=== PATIENT | male | born 1955 | race Caucasian/White ===

== ENCOUNTER 2019-08-17 21:56 | Inpatient (IN) | payer MEDICAID ==
[~2019-08-17] VITALS: Ht 188 cm; Wt 85.1 kg
[~2019-08-17 21:56] MED LIST: FOLI-43 PO; INSU100I26 SQ; INSU100V35 SQ; LACT10SO6 PO; LISI10TA5 PO; MAGN64TA7 PO; OMEP-268 PO; RIFA550T5 PO
[2019-08-17 22:02] VITALS: BP_SYST 176
--- NOTE | 2019-08-17 22:12 | NUR ---
Placed in room 1 . Placed on computer tester, blood pressure machine and pulse oximeter. To gown for exam. Side rails up. Report given to MICKI MACIAS.
[2019-08-17] MEDS ORDERED: THIA50TA10 PO (22:22)
--- NOTE | 2019-08-17 22:23 | NUR ---
Medication reconciliation completed with information provided by [facility]. Any prior medication reconciliation on file was reviewed and corrected.
--- NOTE | 2019-08-17 22:25 | NUR ---
Pt BIB BLS from [facility] for elevated ammonia levels. Pt is alert and ambulatory at this time. Denies any chest pain, shortness of breath, N/V/D or any other symptoms at this time. Will continue to monitor.
--- NOTE | 2019-08-17 22:28 | NUR ---
# 20 gauge angiocath placed to LT AC. Use of asceptic technique. Opsite placed over site. Blood return noted. Blood for lab drawn from site. Flushed with 10 cc of normal saline. No evidence of infiltration noted. Patient tolerated well.
--- NOTE | 2019-08-17 22:40 | NUR ---
Patient transported to radiology via wheelchair, accompanied by rad staff.
[2019-08-17 22:41] LABS: BASOPHILS % (AUTO) 0.9 % (0.0-2.0); EOSINOPHILS # (AUTO) 0.1 K/uL (0.0-0.4); EOSINOPHILS % (AUTO) 3.2 % (0.0-4.0); HEMATOCRIT 32.6 % (36-54); HEMOGLOBIN 11.5 g/dL (14.0-18.0); MEAN CORPUSCULAR HEMOGLOBIN 33 pg (27-31); MEAN CORPUSCULAR HGB CONC 35 % (32-36); MEAN CORPUSCULAR VOLUME 94 fL (79.0-98.0); MONOCYTES # (AUTO) 0.4 K/uL (0.0-1.0); MONOCYTES % (AUTO) 10.6 % (1.7-9.3); NEUTROPHILS # (AUTO) 2.1 K/uL (1.8-7.7); NEUTROPHILS % (AUTO) 57.3 % (40.0-70.0); PLATELET COUNT (AUTO) 91 K/uL (130-430); RED BLOOD CELL COUNT(AUTO) 3.48 MIL/uL (4.2-6.2); RED CELL DISTRIBUTION WIDTH 13.9 % (9.0-15.0); WHITE BLOOD COUNT (AUTO) 3.7 K/uL (4.8-10.8)
[2019-08-17 22:47] LABS: BILIRUBIN,URINE NEGATIVE (NEGATIVE); BLOOD, URINE 1+ (NEGATIVE); CLARITY/URINE CLEAR (CLEAR); COLOR,URINE YELLOW (YELLOW); GLUCOSE,URINE 3+ (NEGATIVE); KETONES,URINE NEGATIVE (NEGATIVE); LEUKOCYTE ESTERASE ,URINE NEGATIVE (NEGATIVE); NITRITE, URINE NEGATIVE (NEGATIVE); PROTEIN URINE NEGATIVE (NEGATIVE); UROBILINOGEN,URINE 0.2 (0.2-1.0)
[2019-08-17 22:49] LABS: CALCIUM 9.4 mg/dL (8.4-11.0); CREATININE 1.06 mg/dL (0.55-1.30); POTASSIUM 5.2 mmol/L (3.5-5.1)
--- NOTE | 2019-08-17 22:52 | NUR ---
ER Dr. De Los Santos at bedside examining patient.
[2019-08-17 22:55] LABS: ALBUMIN 2.9 g/dL (3.4-4.8); TOTAL BILIRUBIN 0.8 mg/dL (0.0-1.0)
[2019-08-17 22:59] LABS: BARBITURATE, URINE NEGATIVE (NEG <=200); BENZODIAZEPINE, URINE NEGATIVE (NEG <=150); CANNABINOID, URINE NEGATIVE (NEG <=50); COCAINE, URINE NEGATIVE (NEG <=150); METHAMPHETAMINES SCREEN,URINE NEGATIVE (NEG <=500); OPIATE, URINE NEGATIVE (NEG <=100); PHENCYCLIDINE SCREEN,URINE NEGATIVE (NEG <=25); UR TRICYCLIC ANTIDEPRESSANTS NEGATIVE (NEG <=300); URINE AMPHETAMINE NEGATIVE (NEG <=500); URINE METHADONE NEGATIVE (NEG <=200); URINE OXYCODONE SCREEN NEGATIVE (NEG <=100); URINE PROPOXYPHENE SCREEN NEGATIVE (NEG <=300)
[2019-08-17 23:01] LABS: BACTERIA,URINE FEW /HPF (None Seen); WBC,URINE 0-3 /HPF (0-3)
[2019-08-17 23:02] LABS: MUCUS,URINE None Seen /LPF (None Seen)
[2019-08-17] MEDS ORDERED: LACTULOSE 20 GM/30 ML UDC PO ONE (23:45)
--- NOTE | 2019-08-17 23:47 | NUR ---
Pt is resting in bed, no acute distress noted at this time. Will continue to monitor.
--- NOTE | 2019-08-18 | NUR ---
Patient will be admitted to care of Dr. Hudson. Admitted to telemetry unit. Will go to room 135. Belongings list completed. Summary report printed. Report will be given at bedside.
--- NOTE | 2019-08-18 00:47 | NUR ---
ADMISSION: The patient, TAO MITCHELL, 64 y/o, M admitted by BOGDAN AKHTAR MD,with the diagnosis of ALOC and Hepatic Encephalopathy , to room 135 , after admission will move pt to 123 B.
--- NOTE | 2019-08-18 00:50 | NUR ---
Transfer to [facility] via ACLS protocol. Licensed nurse present. IV present no signs or symptoms of infiltration.
[2019-08-18 00:59] VITALS: BP_SYST 151
--- NOTE | 2019-08-18 01:15 | NUR ---
NOTES: took over care from nurse Philippe.
--- NOTE | 2019-08-18 01:30 | NUR ---
ADMISSION PHYSICAL ASSESSMENT NOTES; pt. awake, alert, quie disoriented, oriented to room, use of call light and bed control, pt. is bilingual, speaks citizen [place] more than faroese. no c/o pain , on room air, no shortness of breath. moves all extremities well. IV lock on left forearm. pt. instructed to use call light when help needed, not to stand or get out of bed by himself, bed alarm, fall risk precautions. gave warm blanket, rpositioned self for comfort. placed on gambling monitor and shows sinus rhythm. wants to keep his pants and socks.
[2019-08-18] MEDS: D5/0.45 NS 1,000 ML IV SCH ×2 (02:21→20:57)
--- NOTE | 2019-08-18 02:27 | NUR ---
NOTES: pt. awakened and started on IVF of D5 1/2 NS @ 50 cc/hr. pt. wants to sleep. continue to observe.
--- NOTE | 2019-08-18 04:00 | NUR ---
NOTES: pt. sleeping when made rounds. bed alarm on.
--- NOTE | 2019-08-18 04:39 | NUR ---
CONSULT Called Dr. Christiansen's exchange for morning consult [phone] Spoke to Andra
--- NOTE | 2019-08-18 05:00 | NUR ---
NOTES: pt. sound asleep. continue to monitor. IVF infusing.
--- NOTE | 2019-08-18 06:00 | NUR ---
Notes; pt. got out of bed again without calling, voiding per urinal. no complaints noted but forgetful, reminded to use call light. back to bed and went back to sleep.
[2019-08-18 06:12] LABS: BASOPHILS % (AUTO) 1.1 % (0.0-2.0); EOSINOPHILS # (AUTO) 0.2 K/uL (0.0-0.4); HEMATOCRIT 30.1 % (36-54); HEMOGLOBIN 10.6 g/dL (14.0-18.0); LYMPHOCYTES # (AUTO) 1.2 K/uL (1.0-5.5); LYMPHOCYTES % (AUTO) 32.1 % (20.5-51.5); MEAN CORPUSCULAR HEMOGLOBIN 33 pg (27-31); MEAN CORPUSCULAR HGB CONC 35 % (32-36); MEAN CORPUSCULAR VOLUME 94 fL (79.0-98.0); MONOCYTES # (AUTO) 0.4 K/uL (0.0-1.0); MONOCYTES % (AUTO) 11.1 % (1.7-9.3); NEUTROPHILS # (AUTO) 1.9 K/uL (1.8-7.7); NEUTROPHILS % (AUTO) 51.7 % (40.0-70.0); PLATELET COUNT (AUTO) 94 K/uL (130-430); RED BLOOD CELL COUNT(AUTO) 3.21 MIL/uL (4.2-6.2); WHITE BLOOD COUNT (AUTO) 3.8 K/uL (4.8-10.8)
[2019-08-18 06:33] LABS: CALCIUM 8.8 mg/dL (8.4-11.0); CREATININE 0.91 mg/dL (0.55-1.30); POTASSIUM 4.5 mmol/L (3.5-5.1)
--- NOTE | 2019-08-18 06:34 | NUR ---
CLOSING NOTES; pt. sleeping, no acute distress. IVF patent and intact. needs attended, pending labs drawn this am. safety measures in place, bed alarm on. call light at bedside. will endorse to day shift. for further care and assistance.
[2019-08-18 06:38] LABS: ALBUMIN 2.4 g/dL (3.4-4.8); TOTAL BILIRUBIN 0.9 mg/dL (0.0-1.0)
--- NOTE | 2019-08-18 06:56 | NUR ---
Nutrition Update Flip Scale 18 noted. Pt admitted for Hepatic Encephalopathy, ALOC Diet: Regular diet BMI: 24.1 kg/m2 RD to follow per nutrition care standards.
[2019-08-18 07:14] LABS: THYROID STIMULATING HORMONE 28.38 uIu/mL (0.36-3.74)
[2019-08-18 08:00] VITALS: BP_SYST 135
--- NOTE | 2019-08-18 08:00 | NUR ---
AM ASSESSMENT. PT ALERT, AND ABLE TO EXPRESS BASIC NEEDS, HE ASKED TO GET HIM A DIAPER, STATED "IN THE OTHER PLACE, THE NURSES WOULD TELL ME THAT I CAN USE A DIAPER, (HE PULLED DOWN HIS UNDERWEAR TO SHOW WHAT HE'S WEARING). EDUCATION ON USE OF WIPES AND PERSONAL HYGIENE GIVEN. PT WAS LED TO THE BATHROOM, HE WALKED HIMSELF, NURSE FOLLOWING HIM. PROVIDED WET SOAPY TOWELS PLUS DRY TOWEL FOR HYGIENE, AND CLEAN GOWN, THEN ASSISTED PT INTO HIS BED.
[2019-08-18] MEDS: LACTULOSE 20 GM/30 ML UDC PO SCH ×3 (08:45→20:57)
[2019-08-18] MEDS ORDERED: RIFAXIMIN 550 MG TABLET PO ONE (10:00)
--- NOTE | 2019-08-18 10:35 | NUR ---
FAMILY. PT'S SISTER AT BEDSIDE VISITING, UPDATE GIVEN.
[2019-08-18 12:20] VITALS: BP_SYST 146
--- NOTE | 2019-08-18 13:50 | NUR ---
CONSULTATION PAGED/CALLED Reason for Consultation: ALOC Person Who was Notified: SPOKE WITH ZAC FROM EXCHANGE. Consulting Physician: Manager Of Tax Specialty: PSYCHIATRY Ordering Physician: FACE SHEET WAS SENT FAX#[phone]
--- NOTE | 2019-08-18 13:59 | NUR ---
CONSULTATION PAGED/CALLED Reason for Consultation: METABOLIC ENCEPHALOPATHY Person Who was Notified: SPOKE WITH AMAYA FROM EXCHANGE Consulting Physician: Ager Operator Specialty: ID Ordering Physician:
--- NOTE | 2019-08-18 15:30 | NUR ---
TO ANOTHER ROOM. TRANSFERRED PATIENT INTO ROOM 119-A.
[2019-08-18 16:50] VITALS: BP_SYST 140
--- NOTE | 2019-08-18 18:40 | NUR ---
NURSING. PT COMFORTABLY SITTING IN BED, NEEDS ATTENDED, DENIES BODY DISCOMFORTS.
--- NOTE | 2019-08-18 19:10 | NUR ---
OPENING NOTES Bedside report received from dayshift nurse. Patient received lying in bed, awake, watching TV. No s/s of acute distress noted. Breathing is even and unlabored. Patient denies any pain at this time. IVF infusing well, IV site patent, no signs of infiltration or infection noted. HOB raised. Call light with patient, instructed to call for any assistance, patient verbalized understanding, patient demonstrated back proper use. Bed alarm is off per patient's refusal. Bed is locked and at lowest position. Will continue to monitor.
[2019-08-18 20:00] VITALS: BP_SYST 154
[2019-08-18] MEDS: RIFAXIMIN 550 MG TABLET PO SCH (20:56)
--- NOTE | 2019-08-18 21:00 | NUR ---
ROUNDS Patient is in the bathroom at this time. Patient instructed to pull cord if he needs any help, patient verbalized understanding. Will continue to monitor.
--- NOTE | 2019-08-18 23:00 | NUR ---
ROUNDS Patient in bed sleeping at this time. No s/s of acute distress noted. Breathing even and unlabored. IVF infusing well. Call light with patient. Will continue to monitor.
[2019-08-19 00:39] VITALS: BP_SYST 152
--- NOTE | 2019-08-19 01:00 | NUR ---
INCONTINENT CARE Patient woke up, had a BM. Patient cleaned by RN at this time. Changed sheets, linen, and gown. Patient tolerated well. All needs met at this time. Call light with patient. Will continue to monitor.
--- NOTE | 2019-08-19 03:00 | NUR ---
ROUNDS Patient in bed, sleeping. No s/s of acute distress noted. Breathing even and unlabored. IVF infusing well. Call light with patient. Will continue to monitor.
--- NOTE | 2019-08-19 05:00 | NUR ---
ROUNDS Patient in bed sleeping at this time. No signs of discomfort noted. Chest rise and fall even bilaterally. HOB raised. IVF infusing well. Call light with patient. Will continue to monitor.
--- NOTE | 2019-08-19 06:22 | NUR ---
CLOSING NOTES Patient in bed sleeping comfortably. No s/s of acute distress noted. Breathing even and unlabored. IVF infusing well, IV site patent, no signs of infiltration or infection noted. HOB raised. All needs met throughout shift. Fall and safety precautions maintained throughout shift. Will continue to monitor until patient care is endorsed to oncoming dayshift nurse.
[2019-08-19 06:39] LABS: BASOPHILS % (AUTO) 0.6 % (0.0-2.0); EOSINOPHILS # (AUTO) 0.1 K/uL (0.0-0.4); EOSINOPHILS % (AUTO) 1.8 % (0.0-4.0); HEMOGLOBIN 10.8 g/dL (14.0-18.0); LYMPHOCYTES # (AUTO) 0.9 K/uL (1.0-5.5); LYMPHOCYTES % (AUTO) 19.3 % (20.5-51.5); MEAN CORPUSCULAR HEMOGLOBIN 33 pg (27-31); MEAN CORPUSCULAR HGB CONC 35 % (32-36); MEAN CORPUSCULAR VOLUME 95 fL (79.0-98.0); MONOCYTES # (AUTO) 0.7 K/uL (0.0-1.0); MONOCYTES % (AUTO) 14.1 % (1.7-9.3); NEUTROPHILS % (AUTO) 64.2 % (40.0-70.0); PLATELET COUNT (AUTO) 102 K/uL (130-430); RED BLOOD CELL COUNT(AUTO) 3.27 MIL/uL (4.2-6.2); RED CELL DISTRIBUTION WIDTH 13.9 % (9.0-15.0); WHITE BLOOD COUNT (AUTO) 4.6 K/uL (4.8-10.8)
[2019-08-19 07:30] LABS: ALBUMIN 2.7 g/dL (3.4-4.8); CREATININE 1.09 mg/dL (0.55-1.30)
[2019-08-19 07:46] LABS: CALCIUM 8.8 mg/dL (8.4-11.0); TOTAL BILIRUBIN 0.8 mg/dL (0.0-1.0)
[2019-08-19 08:00] VITALS: BP_SYST 139
[2019-08-19] MEDS: RIFAXIMIN 550 MG TABLET PO SCH ×2 (09:26→20:18)
[2019-08-19] MEDS: LACTULOSE 20 GM/30 ML UDC PO SCH ×3 (09:26→20:18)
[2019-08-19] MEDS: D5/0.45 NS 1,000 ML IV SCH (17:28)
--- NOTE | 2019-08-19 19:10 | NUR ---
OPENING NOTES Bedside report received from dayshift nurse. Patient received lying in bed, awake, no s/s of acute distress noted. Breathing even and unlabored. IVF infusing well. IV site is patent, no signs of infiltration or infection noted. HOB raised. Patient denies any pain or discomfort. Call light with patient. Bed is locked and at lowest position. Will continue to monitor.
[2019-08-19 20:00] VITALS: BP_SYST 155
--- NOTE | 2019-08-19 21:00 | NUR ---
ROUNDS Patient in bed, eyes closed, appears to be asleep. No signs of discomfort noted. Chest rise and fall even bilaterally. IVF infusing well. Call light with patient. Will continue to monitor.
--- NOTE | 2019-08-19 23:00 | NUR ---
INCONTINENT CARE Patient had a bowel movement. Incontinent care done by RN. Patient tolerated well. All needs met at this time. Call light with patient. IVF infusing well. Will continue to monitor.
[2019-08-20 00:12] VITALS: BP_SYST 145
--- NOTE | 2019-08-20 01:00 | NUR ---
ROUNDS Patient sleeping comfortably at this time. No signs of discomfort noted. Chest rise and fall even bilaterally. IVF infusing well. Call light with patient. Will continue to monitor.
--- NOTE | 2019-08-20 03:00 | NUR ---
ROUNDS Patient in bed sleeping. No s/s of acute distress noted. Breathing even and unlabored. IVF infusing well. Call light with patient. Will continue to monitor.
--- NOTE | 2019-08-20 05:00 | NUR ---
INCONTINENT CARE Patient in bed, received incontinent care from MECHANICAL DESIGN TECHNICIAN. Patient tolerated well. All needs met. Call light with patient. Will continue to monitor.
--- NOTE | 2019-08-20 06:23 | NUR ---
CLOSING NOTES Patient in bed asleep at this time. No s/s of acute distress noted. Breathing even and unlabored. IVF infusing well. IV site patent, no signs of infiltration or infection noted. HOB raised. All needs met throughout shift. Fall and safety precautions maintained throughout shift. Will continue to monitor until patient care is endorsed to oncoming dayshift nurse.
[2019-08-20 06:30] LABS: BASOPHILS % (AUTO) 0.8 % (0.0-2.0); EOSINOPHILS # (AUTO) 0.2 K/uL (0.0-0.4); EOSINOPHILS % (AUTO) 4.1 % (0.0-4.0); HEMATOCRIT 29.2 % (36-54); HEMOGLOBIN 10.3 g/dL (14.0-18.0); LYMPHOCYTES # (AUTO) 1.4 K/uL (1.0-5.5); LYMPHOCYTES % (AUTO) 29.6 % (20.5-51.5); MEAN CORPUSCULAR HEMOGLOBIN 33 pg (27-31); MEAN CORPUSCULAR HGB CONC 35 % (32-36); MONOCYTES # (AUTO) 0.6 K/uL (0.0-1.0); MONOCYTES % (AUTO) 12.2 % (1.7-9.3); NEUTROPHILS # (AUTO) 2.5 K/uL (1.8-7.7); NEUTROPHILS % (AUTO) 53.3 % (40.0-70.0); PLATELET COUNT (AUTO) 99 K/uL (130-430); RED BLOOD CELL COUNT(AUTO) 3.14 MIL/uL (4.2-6.2); RED CELL DISTRIBUTION WIDTH 13.7 % (9.0-15.0); WHITE BLOOD COUNT (AUTO) 4.7 K/uL (4.8-10.8)
[2019-08-20 06:47] LABS: ALBUMIN 2.4 g/dL (3.4-4.8); CALCIUM 8.6 mg/dL (8.4-11.0); CREATININE 1.01 mg/dL (0.55-1.30); POTASSIUM 3.9 mmol/L (3.5-5.1); TOTAL BILIRUBIN 0.8 mg/dL (0.0-1.0)
--- NOTE | 2019-08-20 07:35 | NUR ---
OPENING NOTE Patient resting in the bed. No acute distress. Denied of pain. Skin warm and dry to touch. IV intact to LFA, no redness, no swelling, no drainage. On D5 1/2NS at 50ml/hr, infusing well. Discussed the safety issue, use call light when needs help, and plan of care, verbally understanding. Safety measure maintained. Call light within reached. Bed locked in low position, side rails up. Refused bed alarm, risk and benefit explained, verbally understanding. Will continue to monitor.
[2019-08-20 07:48] LABS: MEAN CORPUSCULAR VOLUME 93 fL (79.0-98.0)
[2019-08-20 07:55] VITALS: BP_SYST 132
--- NOTE | 2019-08-20 09:00 | NUR ---
BREAKFAST Patient sitting at the edge of the bed and eating breakfast. No acute distress. Safety measure maintained. Call light within reached. Continue to monitor.
[2019-08-20] MEDS: LACTULOSE 20 GM/30 ML UDC PO SCH ×3 (09:52→21:37)
[2019-08-20] MEDS: RIFAXIMIN 550 MG TABLET PO SCH ×2 (09:52→21:37)
--- NOTE | 2019-08-20 10:07 | NUR ---
SEEN AND EXAMINED BY DR. DAVID [facility].
[2019-08-20 12:00] VITALS: BP_SYST 143
--- NOTE | 2019-08-20 12:10 | NUR ---
LUNCH Patient eating lunch in upright position. No acute distress. IV intact, IVF infusing well. Safety measure maintained. Call light within reached. Bed locked in low position, side rails up. Continue to monitor.
--- NOTE | 2019-08-20 13:32 | NUR ---
RESTING Patient resting in the bed with eyes closed. No acute distress. IV intact, IVF infusing well. Safety measure maintained. Call light within reached. Bed locked in low position, side rails up. Continue to monitor.
[2019-08-20] MEDS: D5/0.45 NS 1,000 ML IV SCH (14:51)
--- NOTE | 2019-08-20 15:42 | NUR ---
ROUND Patient resting in the bed. No acute distress. IV intact, IVF infusing well. Safety measure maintained. Call light within reached. Bed locked in low position, side rails up. Continue to monitor.
[2019-08-20 16:16] VITALS: BP_SYST 153
--- NOTE | 2019-08-20 18:45 | NUR ---
CLOSING NOTE Patient resting in the bed. No acute distress. Skin warm and dry to touch. IV intact to LFA, no redness, no swelling, no drainage. On D5 1/2NS at 50ml/hr, infusing well. All needs met. Safety measure maintained. Call light within reached. Bed locked in low position, side rails up. Refused bed alarm, risk and benefit explained, verbally understanding. Will endorse to night nurse.
--- NOTE | 2019-08-20 19:34 | NUR ---
patient resting in bed ,with call light at bedside. Dr Hudson informed about the patient blood sugar and with orders and carried out
[2019-08-20 20:00] VITALS: BP_SYST 155
--- NOTE | 2019-08-20 20:05 | NUR ---
CALLED : CALLED AND NOTIFIED THAT ORDERED FEW LABS FOR TONIGHT , ORDERED TO CHANGE ALL LABS FOR TOMORROW MORNING . Addendum: 08/20/19 at 2009 by Denae Cisneros RN DR HERMILO ARIAS
--- NOTE | 2019-08-20 20:20 | NUR ---
Dr Hudson called for the patient is on ivf and with orders and carried out
--- NOTE | 2019-08-20 20:28 | NUR ---
iv fluids discontinued as per Dr Hudson orders. Addendum: 08/20/19 at 2028 by [employer] reference assistant patient is with orders to remove the monitor and done
[2019-08-21] VITALS: BP_SYST 136
[2019-08-21] MEDS: INSULIN REGULAR, HUMAN 100 UNITS/ML, 10 ML VIAL (humuLIN R) SUBCUT PRN ×4 (00:21→17:38)
[2019-08-21 04:00] VITALS: BP_SYST 127
--- NOTE | 2019-08-21 06:23 | NUR ---
TRANSFER OF CARE/END NOTE RECEIVED REPORT FROM GILBERTO CHRISTINA AT 0600. GILBERTO RODRIGUEZ LEFT EARLY. PATIENT IS ASLEEP BUT AROUSABLE. NO COMPLAINTS AT THIS TIME. LATEST BLOOD SUGAR WAS 164, COVERAGE GIVEN. HAD INCONTINENT EPISODE. CARE AND MONITORING PROVIDED SINCE TRANSFER OF CARE. CALL LIGHT WITHIN REACH. BED ALARM OFF AT THIS TIME BUT ADVISED TO CALL. PATIENT IS AMBULATORY. KEPT CLEAN, DRY AND COMFORTABLE.
[2019-08-21 07:09] LABS: CALCIUM 8.8 mg/dL (8.4-11.0); CREATININE 1.04 mg/dL (0.55-1.30); POTASSIUM 3.9 mmol/L (3.5-5.1)
[2019-08-21 07:10] LABS: EOSINOPHILS # (AUTO) 0.2 K/uL (0.0-0.4); EOSINOPHILS % (AUTO) 6.3 % (0.0-4.0); HEMATOCRIT 29.5 % (36-54); HEMOGLOBIN 10.5 g/dL (14.0-18.0); LYMPHOCYTES # (AUTO) 1.1 K/uL (1.0-5.5); LYMPHOCYTES % (AUTO) 29.3 % (20.5-51.5); MEAN CORPUSCULAR HEMOGLOBIN 33 pg (27-31); MEAN CORPUSCULAR HGB CONC 35 % (32-36); MEAN CORPUSCULAR VOLUME 93 fL (79.0-98.0); MONOCYTES # (AUTO) 0.5 K/uL (0.0-1.0); MONOCYTES % (AUTO) 12.3 % (1.7-9.3); NEUTROPHILS % (AUTO) 51.1 % (40.0-70.0); PLATELET COUNT (AUTO) 106 K/uL (130-430); RED BLOOD CELL COUNT(AUTO) 3.16 MIL/uL (4.2-6.2); RED CELL DISTRIBUTION WIDTH 13.8 % (9.0-15.0); WHITE BLOOD COUNT (AUTO) 3.9 K/uL (4.8-10.8)
--- NOTE | 2019-08-21 07:30 | NUR ---
OPENING NOTES: RECEIVED PATIENT FROM REFRIGERATOR TESTER NURSE. PATIENT IS AWAKE AND ALERT x3. PATIENT DENIES ANY PAIN. NO SIGNS OF DISTRESS OR SHORTNESS OF BREATH NOTED. IV SITE IS PATENT WITH NO SIGNS OF INFILTRATION. PATIENT IN STABLE CONDITION. SAFETY AND FALL PRECAUTIONS ARE IN PLACE. BED LOCKED IN LOWEST POSITION WITH CALL LIGHT IN REACH. WILL CONTINUE TO MONITOR PATIENT FOR ANY CHANGES.
[2019-08-21 08:00] VITALS: BP_SYST 139
[2019-08-21] MEDS: LACTULOSE 20 GM/30 ML UDC PO SCH ×2 (09:20→15:00)
[2019-08-21] MEDS: RIFAXIMIN 550 MG TABLET PO SCH (09:20)
--- NOTE | 2019-08-21 10:30 | NUR ---
RN ROUNDS: PATIENT IS AWAKE AND ALERT x3. PATIENT DENIES ANY PAIN. NO SIGNS OF DISTRESS OR SHORTNESS OF BREATH NOTED. PATIENT IN STABLE CONDITION. WILL CONTINUE TO MONITOR PATIENT FOR ANY CHANGES.
--- NOTE | 2019-08-21 12:28 | NUR ---
RN ROUNDS: PATIENT IS AWAKE AND ALERT x3 IN BED. PATIENT IS CURRENTLY EATING LUNCH. PATIENT DENIES ANY PAIN AT THE MOMENT. NO SIGNS OF DISTRESS OR SHORTNESS OF BREATH NOTED. PATIENT IN STABLE CONDITION. WILL CONTINUE TO MONITOR PATIENT FOR ANY CHANGES.
[2019-08-21 12:40] VITALS: BP_SYST 140
--- NOTE | 2019-08-21 12:47 | NUR ---
Discharge Planning: DCP faxed pt referral to [facility] p [phone]) DCP to follow up. Addendum: 08/21/19 at 1515 by Genet Jameson DP Patient accepted to RM 8B at [facility] p [phone]) Addendum: 08/21/19 at 1538 by Genet Jameson DP Patient accepted to [facility] p [phone]) 8B, transportation arrange by [employer] ([phone]) 6:30pm Reservation #[id number]. Patient packet taken to nurse station.
--- NOTE | 2019-08-21 14:50 | NUR ---
ROUNDS PT IN BED, WATCHING TV, NO S/S OF DISTRESS OR SOB NOTED, PT HAS NO C/O PAIN AT THIS TIME, PT IN STABLE CONDITION, WILL CONTINUE TO MONITOR PT FOR ANY CHANGES.
--- NOTE | 2019-08-21 16:25 | NUR ---
ROUNDS PT IN BED, SLEEPING, NO S/S OF DISTRESS OR SOB NOTED, PT HAS NO FACIAL GRIMACING NOTED FOR PAIN, PT IN STABLE CONDITION, WILL CONTINUE TO MONITOR PT FOR ANY CHANGES.
[2019-08-21 16:45] VITALS: BP_SYST 141
[2019-08-21 18:10] VITALS: BP_SYST 141
--- NOTE | 2019-08-21 18:43 | NUR ---
PT TRANSFERRED Report given to may at [facility]. Transfer packet with Transfer Orders and Medication Reconciliation form given to EMT with report. Exitcare provided. [facility] ID band removed, replaced with ID band with pt's name and . IV catheter removed, intact and dressing applied, no active bleeding. All belongings sent with patient. Patient left floor via gurney escorted by EMT in no distress.
== END 2019-08-21 18:43 | DRG 279 ==
LOC: SED 21:56 → STU 23:40 → SMU 08-20 23:13
PROVIDERS: ADMIT Internal Medicine; ATTEND Internal Medicine
DX: K72.90 Hepatic failure, unspecified without coma (principal); G92 Toxic encephalopathy; E43 Unspecified severe protein-calorie malnutrition; D70.9 Neutropenia, unspecified; D69.6 Thrombocytopenia, unspecified; B19.20 Unspecified viral hepatitis C without hepatic coma; D64.9 Anemia, unspecified; F29 Unspecified psychosis not due to a substance or known physiological condition; E03.9 Hypothyroidism, unspecified; E78.5 Hyperlipidemia, unspecified; I10 Essential (primary) hypertension; K70.30 Alcoholic cirrhosis of liver without ascites
CPT/HCPCS: 36415; 70450-TC; 71045; 76700-TC; 80048; 80053; 80307; 81000-TC; 82105; 82140-TC; 82390; 82962; 83735-TC; 83880; 84443-TC; 84484; 85025; 87081; 93005; 99285; G0378; J1815

== ENCOUNTER 2019-12-01 19:01 | Inpatient (IN) | payer MEDICAID ==
[~2019-12-01] VITALS: Ht 188 cm; Wt 83.2 kg
[~2019-12-01 19:01] MED LIST changes: -INSU100I26 SQ; -MAGN64TA7 PO; +THIA50TA10 PO
[2019-12-01 19:20] VITALS: BP_SYST 160
[2019-12-01 21:45] LABS: BASOPHILS % (AUTO) 0.8 % (0.0-2.0); EOSINOPHILS # (AUTO) 0.3 K/uL (0.0-0.4); EOSINOPHILS % (AUTO) 5.3 % (0.0-4.0); HEMATOCRIT 33.5 % (36-54); LYMPHOCYTES # (AUTO) 1.4 K/uL (1.0-5.5); LYMPHOCYTES % (AUTO) 27.7 % (20.5-51.5); MEAN CORPUSCULAR HEMOGLOBIN 33 pg (27-31); MEAN CORPUSCULAR HGB CONC 36 % (32-36); MEAN CORPUSCULAR VOLUME 92 fL (79.0-98.0); MONOCYTES # (AUTO) 0.4 K/uL (0.0-1.0); MONOCYTES % (AUTO) 8.4 % (1.7-9.3); NEUTROPHILS # (AUTO) 2.8 K/uL (1.8-7.7); NEUTROPHILS % (AUTO) 57.8 % (40.0-70.0); PLATELET COUNT (AUTO) 159 K/uL (130-430); RED BLOOD CELL COUNT(AUTO) 3.64 MIL/uL (4.2-6.2); RED CELL DISTRIBUTION WIDTH 14.3 % (9.0-15.0); WHITE BLOOD COUNT (AUTO) 4.9 K/uL (4.8-10.8)
[2019-12-01 22:03] LABS: PROTHROMBIN TIME 9.9 SECS (9.5-12.5)
[2019-12-01 22:04] LABS: CALCIUM 9.2 mg/dL (8.4-11.0); CREATININE 1.06 mg/dL (0.55-1.30); POTASSIUM 4.5 mmol/L (3.5-5.1)
[2019-12-01 22:06] LABS: ALBUMIN 3.1 g/dL (3.4-4.8); TOTAL BILIRUBIN 0.7 mg/dL (0.0-1.0)
[2019-12-01] MEDS ORDERED: CAT.1 PO (22:17)
[2019-12-01] MEDS ORDERED: FAMO20TA8 PO (22:17)
[2019-12-01] MEDS ORDERED: RIFA550T5 PO (22:17)
[2019-12-01] MEDS ORDERED: INSU100I26 SQ (22:17)
[2019-12-01] MEDS ORDERED: LACT10SO6 PO (22:17)
[2019-12-01] MEDS ORDERED: DOCU-144 PO (22:17)
[2019-12-01] MEDS ORDERED: LISI-600 PO (22:17)
[2019-12-01] MEDS ORDERED: LACTULOSE 20 GM/30 ML UDC PO ONE (22:45)
[2019-12-02 00:38] LABS: BILIRUBIN,URINE NEGATIVE (NEGATIVE); BLOOD, URINE NEGATIVE (NEGATIVE); CLARITY/URINE CLEAR (CLEAR); COLOR,URINE YELLOW (YELLOW); GLUCOSE,URINE TRACE (NEGATIVE); KETONES,URINE NEGATIVE (NEGATIVE); LEUKOCYTE ESTERASE ,URINE NEGATIVE (NEGATIVE); NITRITE, URINE NEGATIVE (NEGATIVE); PROTEIN URINE TRACE (NEGATIVE)
[2019-12-02 00:41] LABS: BACTERIA,URINE FEW /HPF (None Seen); RBC,URINE 0-3 /HPF (0-3); WBC,URINE 0-3 /HPF (0-3)
[2019-12-02 01:30] VITALS: BP_SYST 158
[2019-12-02] MEDS ORDERED: LORazepam 2 MG/ML VIAL IM PRN (02:30)
[2019-12-02 02:33] VITALS: BP_SYST 158
[2019-12-02] MEDS: D5NS 1,000 ML IV SCH ×2 (05:24→19:30)
[2019-12-02] MEDS: INSULIN REGULAR, HUMAN 100 UNITS/ML, 10 ML VIAL (humuLIN R) SUBCUT PRN ×3 (05:41→23:49)
[2019-12-02 06:59] LABS: EOSINOPHILS # (AUTO) 0.3 K/uL (0.0-0.4); EOSINOPHILS % (AUTO) 6.2 % (0.0-4.0); LYMPHOCYTES # (AUTO) 1.4 K/uL (1.0-5.5); LYMPHOCYTES % (AUTO) 32.5 % (20.5-51.5); MEAN CORPUSCULAR HEMOGLOBIN 32 pg (27-31); MEAN CORPUSCULAR HGB CONC 35 % (32-36); MEAN CORPUSCULAR VOLUME 91 fL (79.0-98.0); MONOCYTES # (AUTO) 0.4 K/uL (0.0-1.0); MONOCYTES % (AUTO) 9.5 % (1.7-9.3); NEUTROPHILS # (AUTO) 2.2 K/uL (1.8-7.7); NEUTROPHILS % (AUTO) 50.8 % (40.0-70.0); PLATELET COUNT (AUTO) 144 K/uL (130-430); RED CELL DISTRIBUTION WIDTH 14.2 % (9.0-15.0); WHITE BLOOD COUNT (AUTO) 4.3 K/uL (4.8-10.8)
[2019-12-02 07:05] LABS: ALBUMIN 2.6 g/dL (3.4-4.8); CALCIUM 8.6 mg/dL (8.4-11.0); CREATININE 0.92 mg/dL (0.55-1.30); POTASSIUM 4.2 mmol/L (3.5-5.1)
[2019-12-02 08:15] VITALS: BP_SYST 143
[2019-12-02] MEDS: LACTULOSE 20 GM/30 ML UDC PO SCH ×3 (09:32→21:13)
[2019-12-02] MEDS: cefTRIAXone 1 GM in D5W 50 ML IV SCH (09:35)
[2019-12-02] MEDS ORDERED: DIATR MEGLU/DIATRIZ SOD 30 ML SOLUTION PO ONE (11:31)
[2019-12-02 12:00] VITALS: BP_SYST 147
[2019-12-02 16:13] VITALS: BP_SYST 129
[2019-12-02 20:00] VITALS: BP_SYST 132
[2019-12-03 00:10] VITALS: BP_SYST 146
[2019-12-03] MEDS: INSULIN REGULAR, HUMAN 100 UNITS/ML, 10 ML VIAL (humuLIN R) SUBCUT PRN ×2 (06:34→12:43)
[2019-12-03] MEDS: LACTULOSE 20 GM/30 ML UDC PO SCH ×3 (08:24→21:11)
[2019-12-03] MEDS: cefTRIAXone 1 GM in D5W 50 ML IV SCH (08:25)
[2019-12-03 09:35] LABS: BASOPHILS # (AUTO) 0.1 K/uL (0.0-0.2); BASOPHILS % (AUTO) 1.1 % (0.0-2.0); EOSINOPHILS # (AUTO) 0.2 K/uL (0.0-0.4); EOSINOPHILS % (AUTO) 5.5 % (0.0-4.0); HEMATOCRIT 32.9 % (36-54); HEMOGLOBIN 11.6 g/dL (14.0-18.0); LYMPHOCYTES # (AUTO) 1.4 K/uL (1.0-5.5); LYMPHOCYTES % (AUTO) 30.6 % (20.5-51.5); MEAN CORPUSCULAR HEMOGLOBIN 33 pg (27-31); MEAN CORPUSCULAR HGB CONC 35 % (32-36); MEAN CORPUSCULAR VOLUME 92 fL (79.0-98.0); MONOCYTES # (AUTO) 0.4 K/uL (0.0-1.0); MONOCYTES % (AUTO) 9.9 % (1.7-9.3); NEUTROPHILS # (AUTO) 2.4 K/uL (1.8-7.7); NEUTROPHILS % (AUTO) 52.9 % (40.0-70.0); PLATELET COUNT (AUTO) 155 K/uL (130-430); RED BLOOD CELL COUNT(AUTO) 3.56 MIL/uL (4.2-6.2); RED CELL DISTRIBUTION WIDTH 14.7 % (9.0-15.0); WHITE BLOOD COUNT (AUTO) 4.5 K/uL (4.8-10.8)
[2019-12-03 09:53] LABS: ALBUMIN 2.6 g/dL (3.4-4.8); CALCIUM 8.6 mg/dL (8.4-11.0); POTASSIUM 4.2 mmol/L (3.5-5.1); TOTAL BILIRUBIN 0.7 mg/dL (0.0-1.0)
[2019-12-03] MEDS ORDERED: D5W 1,000 ML IV PRN (11:15)
[2019-12-03] MEDS ORDERED: DEXTROSE 50%-WATER 50 ML DISP.SYRIN IVP PRN (11:15)
[2019-12-03] MEDS ORDERED: GLUCOSE 15 GM GEL (in 37.5 GM TUBE) PO PRN (11:15)
[2019-12-03] MEDS: RIFAXIMIN 550 MG TABLET PO SCH ×2 (12:37→21:12)
[2019-12-03 12:58] VITALS: BP_SYST 118
[2019-12-03] MEDS: D5NS 1,000 ML IV SCH (15:30)
[2019-12-03 16:38] VITALS: BP_SYST 146
[2019-12-03 20:00] VITALS: BP_SYST 165
[2019-12-03] MEDS: cloNIDine HCL 0.1 MG TABLET PO PRN (22:43)
[2019-12-04 00:20] VITALS: BP_SYST 147
[2019-12-04] MEDS: INSULIN REGULAR, HUMAN 100 UNITS/ML, 10 ML VIAL (humuLIN R) SUBCUT PRN ×3 (00:31→16:42)
[2019-12-04 06:44] LABS: BASOPHILS % (AUTO) 0.8 % (0.0-2.0); EOSINOPHILS # (AUTO) 0.3 K/uL (0.0-0.4); EOSINOPHILS % (AUTO) 5.6 % (0.0-4.0); HEMOGLOBIN 11.1 g/dL (14.0-18.0); LYMPHOCYTES # (AUTO) 1.4 K/uL (1.0-5.5); LYMPHOCYTES % (AUTO) 31.5 % (20.5-51.5); MEAN CORPUSCULAR HEMOGLOBIN 33 pg (27-31); MEAN CORPUSCULAR HGB CONC 36 % (32-36); MEAN CORPUSCULAR VOLUME 92 fL (79.0-98.0); MONOCYTES # (AUTO) 0.4 K/uL (0.0-1.0); MONOCYTES % (AUTO) 9.3 % (1.7-9.3); NEUTROPHILS # (AUTO) 2.4 K/uL (1.8-7.7); NEUTROPHILS % (AUTO) 52.8 % (40.0-70.0); PLATELET COUNT (AUTO) 146 K/uL (130-430); RED BLOOD CELL COUNT(AUTO) 3.39 MIL/uL (4.2-6.2); RED CELL DISTRIBUTION WIDTH 14.2 % (9.0-15.0); WHITE BLOOD COUNT (AUTO) 4.6 K/uL (4.8-10.8)
[2019-12-04 06:55] LABS: ALBUMIN 2.6 g/dL (3.4-4.8); CALCIUM 8.6 mg/dL (8.4-11.0); CREATININE 0.88 mg/dL (0.55-1.30); POTASSIUM 3.8 mmol/L (3.5-5.1)
[2019-12-04 08:10] VITALS: BP_SYST 131
[2019-12-04] MEDS: LACTULOSE 20 GM/30 ML UDC PO SCH ×3 (09:00→21:10)
[2019-12-04] MEDS: RIFAXIMIN 550 MG TABLET PO SCH ×2 (11:22→21:10)
[2019-12-04] MEDS: cefTRIAXone 1 GM in D5W 50 ML IV SCH (11:23)
[2019-12-04 12:42] VITALS: BP_SYST 139
[2019-12-04] MEDS: D5NS 1,000 ML IV SCH (14:57)
[2019-12-04 16:50] VITALS: BP_SYST 150
[2019-12-04 20:00] VITALS: BP_SYST 152
[2019-12-05] MEDS: INSULIN REGULAR, HUMAN 100 UNITS/ML, 10 ML VIAL (humuLIN R) SUBCUT PRN ×3 (00:21→17:54)
[2019-12-05 08:00] VITALS: BP_SYST 154
[2019-12-05] MEDS: cefTRIAXone 1 GM in D5W 50 ML IV SCH (08:42)
[2019-12-05] MEDS: D5NS 1,000 ML IV SCH (08:42)
[2019-12-05] MEDS: RIFAXIMIN 550 MG TABLET PO SCH (08:43)
[2019-12-05] MEDS: LACTULOSE 20 GM/30 ML UDC PO SCH ×2 (08:43→15:33)
[2019-12-05] MEDS: cloNIDine HCL 0.1 MG TABLET PO PRN (08:44)
[2019-12-05 12:00] VITALS: BP_SYST 145
[2019-12-05 13:42] VITALS: BP_SYST 145
[2019-12-05 16:00] VITALS: BP_SYST 148
== END 2019-12-05 18:44 | DRG 279 ==
LOC: SED 19:01 → STU 23:30
PROVIDERS: ADMIT Internal Medicine; ATTEND Internal Medicine
DX: K72.90 Hepatic failure, unspecified without coma (principal); R64 Cachexia; N30.90 Cystitis, unspecified without hematuria; K74.60 Unspecified cirrhosis of liver; D64.9 Anemia, unspecified; B18.2 Chronic viral hepatitis C; E03.9 Hypothyroidism, unspecified; E78.5 Hyperlipidemia, unspecified; K56.41 Fecal impaction; I10 Essential (primary) hypertension; Z79.899 Other long term (current) drug therapy
CPT/HCPCS: 36415; 80053; 81000-TC; 82105; 82140-TC; 82150-TC; 82962; 84134; 85025; 85610-TC; 85730-TC; 87040-TC; 87081; 87086; 93005; 99285; G0378; J0696; J1815; J2060; J7042; J7060; Q9964

== ENCOUNTER 2020-08-14 12:32 | Emergency (ER) | payer MEDICAID, SELFPAY ==
[~2020-08-14] VITALS: Ht 188 cm; Wt 83.9 kg
[~2020-08-14 12:32] MED LIST changes: +CAT.1 PO; +DOCU-144 PO; +FAMO20TA8 PO; +INSU100I26 SQ; +LISI-600 PO
--- NOTE | 2020-08-14 12:36 | NUR ---
clarified with Luther Charles RN, admitting doc. Stated that pt will be seen by Dr. Rizzo and Dr. Lerma will follow. RN and superintendent gas distribution notified. TRANSFER INFO Luther Rizzo/ Dr. Lerma [id number]
--- NOTE | 2020-08-14 12:38 | NUR ---
Patient to ER bed 06 to gown for evaluation. Side rails up.
[2020-08-14 12:39] VITALS: BP_SYST 190
--- NOTE | 2020-08-14 12:40 | NUR ---
Pt to [facility] in room 6 with side rails up. Placed in gown. Pt is alert and able to communicate needs. Denies pain and no distress noted.
--- NOTE | 2020-08-14 12:55 | NUR ---
ER Dr. Nowak at bedside examining patient.
[2020-08-14 13:22] LABS: BILIRUBIN,URINE NEGATIVE (NEGATIVE); BLOOD, URINE 1+ (NEGATIVE); CLARITY/URINE CLEAR (CLEAR); COLOR,URINE YELLOW (YELLOW); GLUCOSE,URINE 1+ (NEGATIVE); KETONES,URINE TRACE (NEGATIVE); LEUKOCYTE ESTERASE ,URINE NEGATIVE (NEGATIVE); NITRITE, URINE NEGATIVE (NEGATIVE); PROTEIN URINE 2+ (NEGATIVE); UROBILINOGEN,URINE 0.2 (0.2-1.0)
[2020-08-14 13:30] LABS: ANION GAP 5 (5-15); CALCIUM 8.9 mg/dL (8.4-11.0); CHLORIDE 110 mmol/L (98-107); CREATININE 1.07 mg/dL (0.55-1.30); GLUCOSE 154 mg/dL (70-99); POTASSIUM 4.7 mmol/L (3.5-5.1); SODIUM SERUM 144 mmol/L (136-145); UREA NITROGEN, BLOOD 19 mg/dL (8-21)
[2020-08-14 13:35] LABS: ALANINE AMINOTRANSFERASE 90 U/L (12-78); ALBUMIN 2.8 g/dL (3.4-4.8); ASPARTATE AMINOTRANSFERASE 67 U/L (10-37); TOTAL BILIRUBIN 0.7 mg/dL (0.0-1.0)
[2020-08-14 13:41] LABS: ACETAMINOPHEN < 1 ug/mL (1-30); ALCOHOL, BLOOD < 3 mg/dL (<10); GFR AFRICAN AMERICAN 89 mL/min (>90)
[2020-08-14 13:42] LABS: BARBITURATE, URINE NEGATIVE (NEG <=200); BENZODIAZEPINE, URINE POSITIVE (NEG <=150); CANNABINOID, URINE NEGATIVE (NEG <=50); COCAINE, URINE NEGATIVE (NEG <=150); METHAMPHETAMINES SCREEN,URINE NEGATIVE (NEG <=500); OPIATE, URINE NEGATIVE (NEG <=100); PHENCYCLIDINE SCREEN,URINE NEGATIVE (NEG <=25); UR TRICYCLIC ANTIDEPRESSANTS NEGATIVE (NEG <=300); URINE AMPHETAMINE NEGATIVE (NEG <=500); URINE METHADONE NEGATIVE (NEG <=200); URINE OXYCODONE SCREEN NEGATIVE (NEG <=100); URINE PROPOXYPHENE SCREEN NEGATIVE (NEG <=300)
[2020-08-14 13:45] LABS: BASOPHILS % (AUTO) 0.8 % (0.0-2.0); EOSINOPHILS # (AUTO) 0.1 K/uL (0.0-0.4); EOSINOPHILS % (AUTO) 1.9 % (0.0-4.0); HEMATOCRIT 33.3 % (36-54); HEMOGLOBIN 11.8 g/dL (14.0-18.0); LYMPHOCYTES # (AUTO) 0.8 K/uL (1.0-5.5); LYMPHOCYTES % (AUTO) 20.7 % (20.5-51.5); MEAN CORPUSCULAR HEMOGLOBIN 33 pg (27-31); MEAN CORPUSCULAR HGB CONC 35 % (32-36); MEAN CORPUSCULAR VOLUME 93 fL (79.0-98.0); MONOCYTES # (AUTO) 0.4 K/uL (0.0-1.0); MONOCYTES % (AUTO) 9.4 % (1.7-9.3); NEUTROPHILS # (AUTO) 2.6 K/uL (1.8-7.7); NEUTROPHILS % (AUTO) 67.2 % (40.0-70.0); PLATELET COUNT (AUTO) 120 K/uL (130-430); RED BLOOD CELL COUNT(AUTO) 3.59 MIL/uL (4.2-6.2); RED CELL DISTRIBUTION WIDTH 14.2 % (9.0-15.0); WHITE BLOOD COUNT (AUTO) 3.8 K/uL (4.8-10.8)
[2020-08-14 13:51] LABS: CHOLESTEROL 135 mg/dL (<200); HDL CHOLESTEROL 60 mg/dL (>45); LDL CHOLESTEROL 68 mg/dL (<100); TRIGLYCERIDES 81 mg/dL (30-150)
[2020-08-14 13:58] LABS: BACTERIA,URINE FEW /HPF (None Seen); WBC,URINE 0-3 /HPF (0-3)
[2020-08-14] MEDS ORDERED: cloNIDine HCL 0.1 MG TABLET PO ONE (14:15)
--- NOTE | 2020-08-14 14:33 | NUR ---
Pt alert and able to communicate. Pt is cooperative. Urinates in urinal. Denies pain.
--- NOTE | 2020-08-14 14:42 | NUR ---
pt to be transfered to [facility]. Pt stable and aware of transfer.
--- NOTE | 2020-08-14 15:22 | NUR ---
called [facility] and they said they would call us back regarding transfer report. That their phone system is not working correctly.
--- NOTE | 2020-08-14 16:04 | NUR ---
Patient to be transferred to [facility]. Is being transferred due to higher level of care. Receiving facility has accepting physician and available space. ER physician has signed transfer form. Patient or responsible democrat has agreed to transfer and signed form. Patient belongings inventoried and will be sent with patient. Copy of nursing notes, lab reports, EKG, Physicians Orders and X-rays to be sent with patient. Report called to [facility] at receiving facility. Receiving physician is JEYSON. [facility] ambulance service has been called for transfer. ETA is 1610.
[2020-08-14 16:06] VITALS: BP_SYST 162
== END 2020-08-14 16:04 ==
LOC: SED 12:32
DX: D61.818 Other pancytopenia (principal); R74.0 Nonspecific elevation of levels of transaminase and lactic acid dehydrogenase [LDH]; D64.9 Anemia, unspecified; I10 Essential (primary) hypertension; E11.9 Type 2 diabetes mellitus without complications; E07.9 Disorder of thyroid, unspecified; E78.5 Hyperlipidemia, unspecified; Z79.899 Other long term (current) drug therapy; Z79.4 Long term (current) use of insulin; Z86.19 Personal history of other infectious and parasitic diseases
CPT/HCPCS: 36415; 80053; 80061; 80307; 81000; 83036; 85025; 87426; 99285; G0480; G0481; G0482

== ENCOUNTER 2020-12-14 22:29 | Emergency (ER) | payer MEDICAID, SELFPAY ==
[~2020-12-14] VITALS: Ht 182.9 cm; Wt 90.7 kg
[2020-12-14 22:35] VITALS: BP_SYST 124
[2020-12-14 23:46] VITALS: BP_SYST 133
== END 2020-12-14 23:46 | disposition home or self-care (01) ==
LOC: SED 22:29
DX: S00.81XA Abrasion of other part of head, initial encounter (principal); I10 Essential (primary) hypertension; E11.9 Type 2 diabetes mellitus without complications; E03.9 Hypothyroidism, unspecified; E78.5 Hyperlipidemia, unspecified; Z79.899 Other long term (current) drug therapy; W18.39XA Other fall on same level, initial encounter; Y93.89 Activity, other specified; Y92.89 Other specified places as the place of occurrence of the external cause; Y99.8 Other external cause status
CPT/HCPCS: 70450-TC; 76376; 82962; 99284